=== PATIENT | female | born 1935 | race Caucasian/White ===

== ENCOUNTER 2020-09-18 19:22 | Emergency (ER) | payer MEDICARE, BC ==
--- NOTE | 2020-09-18 20:26 | EDM.PDOC ---
ED HPI GENERAL MEDICAL PROBLEM - General Chief Complaint: ENT Problem Stated Complaint: THROAT PAIN AFTER CHOKING Time Seen by Provider: 09/18/20 20:10 Source of Information: Reports: Patient, Family - History of Present Illness INITIAL COMMENTS - FREE TEXT/NARRATIVE: Linette is a 85 year old whom presents to ER with family due to choking episode at a local restaurant in [place] eating a steak. Patient has a habit of talking a lot and while eating. This evening she was eating steak and the piece slipped down the back of her throat in her airway resulting in a choking episode at the restaurant. staff nuclear medicine technologist perform Heimlich and steak was removed from airway. Linette reports posterior throat irritation remains since eating this evening. Patient has been able to eat drink and swallow without difficulty since incident. 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 ED EXAM, ENT - Physical Exam Exam: See Below Exam Limited By: No Limitations General Appearance: Alert, WD/WN, No Apparent Distress Eye Exam: Bilateral Eye: Normal Inspection Ears: Normal External Exam, Hearing Grossly Normal Nose: Normal Inspection Mouth/Throat: Normal Inspection, Normal Gums, Normal Lips, Normal Oropharynx, Other (slight erythema without swelling noted) Neck: Normal Inspection Respiratory/Chest: No Respiratory Distress, Normal Breath Sounds Cardiovascular: Normal Peripheral Pulses, Regular Rate, Rhythm (Female) Exam: Deferred Neurological: Alert, Oriented, CN II-XII Intact, Normal Cognition, Normal Gait Psychiatric: Normal Affect, Normal Mood Skin: Warm, Dry, Intact, Normal Color Course - Vital Signs Last Recorded V/S: Last Vital Signs Temp 36.6 C 09/18/20 20:07 Pulse 68 09/18/20 20:07 Resp 12 09/18/20 20:07 BP 168/80 H 09/18/20 20:07 Pulse Ox 94 L 09/18/20 20:07 Departure - Departure Time of Disposition: 20:38 Disposition: Home, Self-Care 01 Clinical Impression: Choking due to food in larynx, Elevated blood pressure reading - Discharge Information Instructions: Choking, Adult Referrals: PCP,Roland [Primary Care Provider] - Eldon Jeffers DATABASE COORDINATOR [Nurse Practitioner] - Forms: ED Department Discharge Additional Instructions: 1. Limit talking while eating to help prevent choking. 2. Increased fluid intake. 3. Consider Endoscopy to evaluate for difficulty swallowing and difficulty with breathing and swallow timing causing choking episode where are becoming more frequent. 4. Call [facility] for evaluation in the next 2 months (Eldon Rodríguez) if continued symptoms or concerns while in the area. 5. [facility] on return for same if recurrence remains rare. 6. Return to ER if concern changes new worsening symptoms or concerns. 7. Blood pressure recheck in the next 1-2 weeks recommended. Sepsis Event Note (ED) - Evaluation Sepsis Screening Result: No Definite Risk - Focused Exam Vital Signs: Vital Signs Temp Pulse Resp BP Pulse Ox 09/18/20 20:07 36.6 C 68 12 168/80 H 94 L 09/18/20 19:58 36.6 C 68 12 168/80 H 94 L
== END 2020-09-18 20:58 | disposition home or self-care (01) ==
LOC: JP.ED 19:22
DX: T17.328A Food in larynx causing other injury, initial encounter (principal); I10 Essential (primary) hypertension; E78.00 Pure hypercholesterolemia, unspecified; M19.90 Unspecified osteoarthritis, unspecified site; Z79.899 Other long term (current) drug therapy
CPT/HCPCS: 99282